=== PATIENT | male | born 1995 | race Caucasian/White ===

== ENCOUNTER 2017-07-14 18:13 | Emergency (ER) | payer OTHER ==
[~2017-07-14] VITALS: Ht 162.6 cm; Wt 69.8 kg
[~2017-07-14 18:13] MED LIST: IBUPROFEN200 MG PO
[2017-07-14] MEDS ORDERED: BACTRIM DS TAB1 EACH PO (18:44)
== END 2017-07-14 18:50 | disposition home or self-care (01) ==
LOC: ED 18:13
DX: L30.3 Infective dermatitis (principal); Z59.0 Homelessness; F17.200 Nicotine dependence, unspecified, uncomplicated
CPT/HCPCS: 99283

== ENCOUNTER 2019-01-05 23:09 | Emergency (ER) | payer OTHER ==
[~2019-01-05] VITALS: Ht 162.6 cm; Wt 69.8 kg
[~2019-01-05 23:09] MED LIST changes: +BACTRIM DS TAB1 EACH PO
--- OUTSIDE RECORDS SUMMARY | 2019-01-05 23:12 | XMS ---
PreManage Notification: ALYSE KNOX [employer] Safety [employer] Events No recent Security Events currently on file CRITERIA MET - Group Notification CARE PROVIDERS There are no care providers on record at this time. Mary has no Care Guidelines for this patient. Jose E VISIT COUNT (12 MO.) 2 [facility] TOTAL 2 NOTE: Visits indicate total known visits. ED/UCC VISIT TRACKING (12 MO.) 01/05/2019 23:10 [facility] [place] TYPE: Emergency COMPLAINT: - RIB PAIN INJURY 04/01/2018 06:[address] [facility] [place] TYPE: Emergency COMPLAINT: - INTOXICATION/BUG BITE DIAGNOSES: - Other usp (current) drug therapy - Alcohol abuse with intoxication, unspecified - Toxic effect of venom of bees, accidental (unintentional), initial encounter INPATIENT VISIT TRACKING (12 MO.) No inpatient visits to display in this time frame [email or web address]
== END 2019-01-06 00:42 | disposition home or self-care (01) ==
LOC: ED 23:09
DX: S00.01XA Abrasion of scalp, initial encounter (principal); S00.81XA Abrasion of other part of head, initial encounter; S30.810A Abrasion of lower back and pelvis, initial encounter; S20.419A Abrasion of unspecified back wall of thorax, initial encounter; F17.200 Nicotine dependence, unspecified, uncomplicated; Y04.0XXA Assault by unarmed brawl or fight, initial encounter
CPT/HCPCS: 71046; 74177; 80053; 85025; 99284-25; Q9967